=== PATIENT | female | born 1955 | race African-American/Black ===

== ENCOUNTER 2019-04-28 20:21 | Inpatient (IN) | payer SELFPAY ==
[~2019-04-28] VITALS: Ht 157.5 cm; Wt 96.4 kg
--- NOTE | 2019-04-28 | NUR ---
PATIENT ADMITTED FROM ER VIA STRETCHER WITH ER STAFF IN ATTENDNCE. PATIENT ABLE TO STAND AND TRANSFER TO BR TO VOID. THEN MIN ASSIST TO THE BED. PATIENT DROWSY BUT RESPONSIVE-ADMITTED FOR ACUTE APPY. NPO AT THIS TIME. PATIENT WITH IV SITE TO RIGHT AC-IVF NS HUNG AND INFUSING ORDERED. GOOD BLOOD RETURN FROM SITE. ZOSYN HUNG ORDERED. SURGERY CONSULT WITH DR. ESPINOSA IN AM. PATIENT ORIENTED TO ROOM AND SURROUNDINGS. INSTRUCTED PATIENT ON USE OF NURSE CALL LIGHT SYSTEM, TV REMOTE AND PHONE. SAFETY PRECAUTIONS REINFORCED. CALL LIGHT IN REACH. WILL CONT TO MONITOR.
[~2019-04-28 20:21] MED LIST: LORTAB 5 OR; MUSCLE RELAXER; NAPROSYN500 MG PO; TRAMADOL HCL50 MG PO; TRIAMCINOLON0.11 EX; VICODIN1 TAB OR
--- NOTE | 2019-04-28 20:21 | NUR ---
PT IMMEDIATELY TO ER RM 13.A/P F WITH DIFF EMPTYING HER BLADDER AND NO BM X2-3 DAYS.WITH N/V ONSET S/S AT 2AM TODAY.TOOK OTC LAXATIVE AND PRUNE JUICE TODAY SKIPPER HER BP MED
[2019-04-28] MEDS ORDERED: LOPID600 MG PO (20:45)
[2019-04-28 20:55] LABS: HEMATOCRIT 46.8 % (37.0-47.0); IMMATURE GRANULOCYTES 0.4 % (0.0-5.0); MEAN CELL VOLUME 93.2 fL CALC (80.0-100.0); MEAN CORPUSCULAR HGB 29.9 pG CALC (26.0-32.0); MEAN CORPUSCULAR HGB CONC 32.1 g/L CALC (32.0-36.0); NEUT# 12.18 thou/uL (2.00-7.15); RED BLOOD COUNT 5.02 mill/uL (4.20-5.60); RED CELL DISTRI WIDTH 14.8 % (11.5-15.5)
--- NOTE | 2019-04-28 20:58 | NUR ---
PT HAS FECES ODOR ON HER BREATH
--- NOTE | 2019-04-28 20:58 | NUR ---
PT HAS FECES ON HER BREATH
--- NOTE | 2019-04-28 21:27 | NUR ---
pt to xray
[2019-04-28 21:38] LABS: ALBUMIN 4.9 g/dL (3.2-5.0); ALKALINE PHOSPHATASE 80 u/l (38-126); AMYLASE 72 u/l (30-110); ANION GAP 19 (6-22 (CALC)); BILIRUBIN, TOTAL 0.7 mg/dL (0.0-1.4); BUN 10 mg/dL (8-23); BUN/CREATININE RATIO 13 (12-20 (CALC)); CARBON DIOXIDE 21 mmol/l (22-30); CHLORIDE 101 mmol/l (95-108); CREATININE 0.8 mg/dL (0.5-1.0); GFR > 60 ML/MIN (>=60 (CALC)); GFR FOR AFR.AMER. > 60 ML/MIN (>=60 (CALC)); POTASSIUM 4.5 mmol/l (3.5-5.1); SGOT/AST 23 u/l (9-36); SODIUM 137 mmol/l (137-146); TOTAL PROTEIN 8.8 g/dL (6.3-8.2)
--- NOTE | 2019-04-28 22:08 | NUR ---
FEELING BETTER NO VOMITING UA SPEC TO LAB
[2019-04-28 22:16] LABS: URINE BILIRUBIN - DIPSTICK NEGATIVE (NEGATIVE); URINE BLOOD DIPSTICK MODERATE (NEGATIVE); URINE COLOR YELLOW; URINE GLUCOSE - DIPSTICK NEGATIVE (NEGATIVE); URINE KETONE NEGATIVE (NEGATIVE); URINE LEUK ESTERASE NEGATIVE (NEGATIVE); URINE NITRITE - DIPSTICK NEGATIVE (Negative); URINE PROTEIN - DIPSTICK NEGATIVE (NEG-TRACE); URINE SPECIFIC GRAVITY <=1.005; URINE UROBILINOGEN - DIPSTICK 0.2 E.U./dL (0.2)
[2019-04-28 22:27] LABS: URINE SQUAMOUS EPITHELIAL CELL FEW EPI/hpf (0-FEW); URINE WBC 0-2 WBC/hpf (0-5)
--- NOTE | 2019-04-28 22:50 | NUR ---
PHONE REPORT TO NURSE STEFANIE ON MS2
--- NOTE | 2019-04-28 22:55 | NUR ---
PT TRANSPORTED VIA SWTETCHER IN STABLE CONDITION
[2019-04-28 23:05] VITALS: BP 147/72
[2019-04-29] VITALS (10 sets, daily range): BP systolic 116–143; BP diastolic 50–79
--- NOTE | 2019-04-29 03:39 | NUR ---
PATIENT APPEARS SLEEPING AT THIS TIME. EYES CLOSED-RESP ARE EVEN AND UNLABORED. IVF PATENT AND INFUSING VIA RIGHT AC SITE ORDERED. SITE REMAINS HEALTHY AT THIS TIME. CALL LIGHT IN REACH. WILL CONT TO MONITOR.
--- NOTE | 2019-04-29 06:15 | NUR ---
PATIENT RESTING IN BED-C/O SEVERE RLQ PAIN. TEARFUL-SPOKE WITH DR. HENRY AND NEW ORDER RECIEVED. MORPHINE 4MG IVP GIVEN ORDERED FOR SEVERE PAIN. REMOIANS NPO AT THIS TIME. IVF PATENT AND INFUSING VIA RAC SITE AT 125CC/HR. SITE REMAINS HEALTHY. CALL LIGHT IN REACH. WILL CONT TO MONITOR.
--- NOTE | 2019-04-29 07:03 | NUR ---
SHIFT CHANGE REPORT, PT AWAKE ALERT AND ORIENTED, C/O RLQ PAIN AT THIS TIME, OR STAFF HERE RECEIVING PT FOR SURGERY, PT AWARE OF PROCEDURE, LEAVING UNIT AT THIS TIME VIA STRETCHER TO OR.
--- NOTE | 2019-04-29 09:18 | NUR ---
PT RETURNED TO UNIT @ 0918 TRANSPORTED BY PACU STAFF VIA STRETCHER AND ASSISTED TO BED, MOANS AND GROANS IN PAIN DURING TRANSFER, PUNCTURES X 3 TO LOWER ABD WITH ERNESTO DRESSINGS CDI, ABD DISTENDED AND TENDER BUT SOFT, IVF INFUSING, SETTLED IN BED AND SET UP FOR VITAL SIGNS MONITORING, SCD IN PLACE, FAMILY AT BEDSIDE, WILL CONTINUE TO MONITOR.
--- NOTE | 2019-04-29 18:31 | NUR ---
PT HAS BEEN UP SEVERAL TIMES AND AMBULATED TO BR WITH ASSIST.
--- NOTE | 2019-04-29 20:00 | NUR ---
PATIENT RESTING IN BED AT THIS TIME-AWAKE ALERT AND IN POST-OP PAIN. MEDICATED WITH MORPHINE 4MG IVP AND ZOFRAN 4MG IVP VIA LEFT WRIST SITE. IVF NS PATENT ANDINFUSING AT 125CC/HR. SITE IS HEALTHY. PATIENT ASSIST TO BR TO VOID AND THEN BACK TO BED, ABD DRESSING CDI. TOLERATING PO FLUIDS WELL. WNCOURAGED USE OF IS AND SCD'S IN PLACE. CALL LIGHT IN REACH. WILL CONT TO MONITOR
[2019-04-30 00:32] VITALS: BP 149/83
[2019-04-30 03:52] VITALS: BP 162/85
--- NOTE | 2019-04-30 06:00 | NUR ---
PATIENT ASSISTED TO BR-MIN ASSIST. VOIDING QS AND HAD MODERATE AMT OF WATERY GREEN STOOL. ASSISTED BACK TO BED AND MEDICATED WITH MORPHINE FOR PAIN AND [id number] FOR NAUSEA. ZOSYN INFUSING ORDERED. CALL IGHT IN REACH. WILL CONT TO MONITOR.
[2019-04-30 07:50] VITALS: BP 169/97
[2019-04-30 11:38] VITALS: BP 169/97
[2019-04-30] MEDS ORDERED: PERCOCET 5/325M1 TAB PO (12:32)
--- NOTE | 2019-04-30 14:08 | NUR ---
Discharge instructions given. Patient verbalizes understanding of same. Discharged in stable condition via Wheelchair to Home with family. All belongings sent with pt.
== END 2019-04-30 14:08 | disposition home or self-care (01) | DRG 343 ==
LOC: ED 20:21 → ED-I 22:03 → ED 22:23 → MS2 22:23
PROVIDERS: Family Medicine; ADMIT Surgery; ATTEND Surgery
PROC: 0DTJ4ZZ Resection of Appendix, Percutaneous Endoscopic Approach (ICD-10-PCS; principal; 2019-04-29)
DX: K35.80 Unspecified acute appendicitis (principal); E78.5 Hyperlipidemia, unspecified; F17.200 Nicotine dependence, unspecified, uncomplicated
CPT/HCPCS: J0131; J1650; J2710